=== PATIENT | female | born 2000 | race Caucasian/White ===

== ENCOUNTER 2022-08-21 17:56 | Inpatient (IN) | payer OTHER ==
[~2022-08-21] VITALS: Ht 157.5 cm; Wt 113.2 kg
[2022-08-21] MEDS ORDERED: AMPICILLIN FOR IV USE 2,000 MG in NS (IVPB) 50 ML IV SCH (18:14)
[2022-08-21] MEDS ORDERED: TERBUTALINE INJ 1 MG/ML (BRETHINE) AMP SC PRN (18:15)
[2022-08-21 20:04] LABS: BASOPHILS % (AUTO) 0 % (0-10); EOSINOPHILS # (AUTO) 0.1 10^3/uL (0.0-0.3); EOSINOPHILS % (AUTO) 1 % (0-10); HEMATOCRIT 39 % (35-52); HEMOGLOBIN 13.3 g/dL (11.5-16.0); LYMPHOCYTES # (AUTO) 2.5 10^3/uL (1.0-4.0); LYMPHOCYTES % (AUTO) 23 % (12-44); MEAN CORPUSCULAR HEMOGLOBIN 31 pg (25-34); MEAN CORPUSCULAR HGB CONC 34 g/dL (32-36); MEAN CORPUSCULAR VOLUME 93 fL (80-99); MEAN PLATELET VOLUME 11.3 fL (9.0-12.2); MONOCYTES # (AUTO) 0.7 10^3/uL (0.0-1.0); MONOCYTES % (AUTO) 6 % (0-12); NEUTROPHILS # (AUTO) 7.4 10^3/uL (1.8-7.8); NEUTROPHILS % (AUTO) 69 % (42-75); PLATELET COUNT 233 10^3/uL (130-400); WHITE BLOOD COUNT 10.8 10^3/uL (4.3-11.0)
[2022-08-21] MEDS: NS IV 1000 ML 1,000 ML IV SCH ×2 (20:07→23:21)
[2022-08-21 20:15] VITALS: BP 119/74
[2022-08-21 20:33] VITALS: BP 140/84
[2022-08-21] MEDS ORDERED: ACYCLOVIR 400 MG TABLET (ZOVIRAX) PO SCH (21:30)
[2022-08-21] MEDS ORDERED: ACYCLOVIR 400 MG TABLET (ZOVIRAX) ONE (21:41)
[2022-08-21] MEDS: ACYCLOVIR 400 MG TABLET (ZOVIRAX) PO SCH (21:48)
[2022-08-21] MEDS ORDERED: CATHETER FLUSH 10 ML SYR IV SCH (22:00)
[2022-08-21 23:30] VITALS: BP 124/67
[2022-08-22] VITALS (63 sets, daily range): BP systolic 34–171; BP diastolic 52–101
[2022-08-22] MEDS: AMPICILLIN FOR IV USE 1,000 MG in NS (IVPB) 50 ML IV SCH ×6 (01:08→22:19)
[2022-08-22] MEDS: NS IV 1000 ML 1,000 ML IV SCH ×2 (08:23→18:23)
--- NOTE | 2022-08-22 08:29 | History & Physical-OB ---
OB - Chief Complaint & HPI Date/Time Date of Admission: Date of Admission: Aug 21, 2022 at 17:56 Date seen by a Provider: Aug 22, 2022 Time Seen by a Provider: 08:00 Chief Complaint/History OB-Reason for Admission/Chief: Induction of Labor Hx : 1 Hx Para: 0 Expected Date of Delivery: Aug 23, 2022 Gestational Age in Weeks: 39 Gestational Age in Days: 4 Allergies and Home Medications Allergies Coded Allergies: cephalexin (Verified Allergy, Severe, Hives, 08/21/22) rizatriptan (Verified Adverse Reaction, Intermediate, Shortness of Breath, 08/21/22) Patient Home Medication List Home Medication List Reviewed: Yes OB - History Hx of Present Care: Yes Ultrasounds: Normal mid trimester US Obstetrical Complications: None Medical Complications: None Obstetrical History Hx : 1 Patient Past Medical History None Social History/Family History Alcohol Use: Denies Use Recreational Drug Use: No Smoking Cessation: Never smoker 2nd Hand Smoke Exposure: No Immunizations Influenza Vaccine Up-to-Date: No; Not Current Hepatitis A: Yes Hepatitis B: Yes Tetanus Booster (TDap): Less than 5yrs Rubella: immune RPR/VDRL: Negative GBS Status: Positive HBsAG: Negative OB - Admission Exam Physical Exam Vitals: Vital Signs 08/21/22 08/21/22 08/22/22 20:33 23:30 06:24 Temp 36.9 Pulse 72 Resp 18 B/P (MAP) 102/59 (73) Pulse Ox 97 O2 Delivery Room Air HEENT: NCAT Heart: Rhythm Normal Lungs: Clear Abdomen: Gravid Cervical Dilatation: 3cm Effacement: Other (80%) Station: 0 Membranes: Intact Heart Rate: 130's Accelerations: Accelerations Present Decelerations: No Decelerations Contractions on Admission: >10 Minutes Apart Intensity: Moderate Adams Scoring Tool (Modified) Dilation (cm): 1-2cm (1) Effacement (%): 51-79% (2) Descent/Station: -1,0 (2) Cervix Consistency: Medium(1) Cervix Position: Middle/Mid-Position (1) Subtract 1 point for: Nulliparity (-1) Adams Score: 6 Labs Laboratory Tests Test 08/21/22 19:55 Range/Units White Blood Count 10.8 4.3-11.0 10^3/uL Red Blood Count 4.23 3.80-5.11 10^6/uL Hemoglobin 13.3 11.5-16.0 g/dL Hematocrit 39 35-52 % Mean Corpuscular Volume 93 80-99 fL Mean Corpuscular Hemoglobin 31 25-34 pg Mean Corpuscular Hemoglobin Concent 34 32-36 g/dL Red Cell Distribution Width 13.9 10.0-14.5 % Platelet Count 233 130-400 10^3/uL Mean Platelet Volume 11.3 9.0-12.2 fL Immature Granulocyte % (Auto) 1 % Neutrophils (%) (Auto) 69 42-75 % Lymphocytes (%) (Auto) 23 12-44 % Monocytes (%) (Auto) 6 0-12 % Eosinophils (%) (Auto) 1 0-10 % Basophils (%) (Auto) 0 0-10 % Neutrophils # (Auto) 7.4 1.8-7.8 10^3/uL Lymphocytes # (Auto) 2.5 1.0-4.0 10^3/uL Monocytes # (Auto) 0.7 0.0-1.0 10^3/uL Eosinophils # (Auto) 0.1 0.0-0.3 10^3/uL Basophils # (Auto) 0.0 0.0-0.1 10^3/uL Immature Granulocyte # (Auto) 0.1 0.0-0.1 10^3/uL OB - Assessment/Plan/Diagnosis Assessment Assessment: group B positive strep, induction of labor Admission Dx Third Trimester 39 completed weeks gestation GBS + HSV +, no active lesions, on Ppx Admission Status: Inpatient Order (span 2 midnights) Reason for Inpatient Admission: Labor and delivery Plan Other Plan 21 yo G1 @ 39.5 wga here for elective IOL Plan - Completed cytotec protocol O/N - Epidural when desired - GBS + EMBER SLATER MD Aug 22, 2022 08:29
[2022-08-22] MEDS ORDERED: fentaNYL 2 mcg/ml BUPIVA 0.125 100 ML ONE (08:34)
[2022-08-22] MEDS ORDERED: fentaNYL INJ 100 MCG/2 ML AMP ONE ×2 (09:25→23:00)
[2022-08-22] MEDS: fentaNYL 2 mcg/ml BUPIVA 0.125 100 ML IV SCH ×2 (09:30→17:28)
[2022-08-22] MEDS ORDERED: LACTATED RINGERS 1,000 ML IV ONE (10:00)
[2022-08-22] MEDS ORDERED: NALOXONE 0.4 MG/ML 1 ML (NARCAN) VIAL IV PRN (10:00)
[2022-08-22] MEDS ORDERED: OXYTOCIN PRE-MIX DRIP 500 ML IV SCH (10:15)
[2022-08-22] MEDS ORDERED: ONDANSETRON 4 MG/2 ML (SDV) Z0FRAN ONE (12:36)
[2022-08-22] MEDS ORDERED: ONDANSETRON 4 MG/2 ML (SDV) Z0FRAN IVP PRN (12:45)
[2022-08-22] MEDS ORDERED: METOCLOPRAMIDE INJ 10 MG/2 ML (REGLAN) IVP PRN (13:00)
[2022-08-22] MEDS ORDERED: LIDOCAINE/EPI 2% 1:200,00 (XYLOCAINE) 10 ML VIAL ONE (19:27)
[2022-08-22] MEDS ORDERED: MINERAL OIL 30 ML UDC ONE (19:27)
[2022-08-22] MEDS: ACYCLOVIR 400 MG TABLET (ZOVIRAX) PO SCH (22:17)
[2022-08-22] MEDS ORDERED: FAMOTIDINE 20MG/2ML IV (PEPCID) ONE (22:42)
[2022-08-22] MEDS ORDERED: METOCLOPRAMIDE INJ 10 MG/2 ML (REGLAN) ONE (22:42)
[2022-08-22] MEDS ORDERED: CITRIC ACID/SOB CIT (BICITRA) 30 ML UDC ONE (22:42)
--- NOTE | 2022-08-22 22:43 | Labor Progress Note ---
Labor Progress Note Labor Progress Note Date Seen by Provider: Aug 22, 2022 Time Seen by Provider: 22:39 Subjective: Patient pushing for 2 hrs and 30 mins. She is exhausted and states that she wants a c/section Objective: Complete +3, OP position Assessment/Plan: Saira Randhawa is a (21 /Para 1 / 0,Gestational Age (wks)39.5 wga here for IOL Failure to progress maternal Exhaustion GBS + adequately treated Dr Diaz called and updated on patient, Primary c/s called urgent @ 1029 Vitals - Labs Vital Signs - I&O Vital Signs Date Time Temp Pulse Resp B/P (MAP) Pulse Ox O2 Delivery O2 Flow Rate FiO2 08/22/22 19:00 133 18 150/89 (109) Room Air 08/22/22 18:45 116 18 149/78 (101) Room Air 08/22/22 18:30 36.6 115 18 142/74 (96) Room Air 08/22/22 18:15 115 18 143/74 (97) Room Air 08/22/22 18:00 115 18 142/76 (98) Room Air 08/22/22 17:30 109 18 136/85 (102) Room Air 08/22/22 17:15 113 18 137/74 (95) Room Air 08/22/22 17:00 109 18 128/72 (90) Room Air 08/22/22 16:45 112 18 137/71 (93) Room Air 08/22/22 16:30 114 18 131/68 (89) Room Air 08/22/22 16:15 116 18 137/74 (95) Room Air 08/22/22 16:00 113 18 135/75 (95) Room Air 08/22/22 15:45 122 18 143/83 (103) Room Air 08/22/22 15:30 116 18 135/68 (90) Room Air 08/22/22 15:15 105 18 130/68 (88) Room Air 08/22/22 15:00 111 18 130/72 (91) Room Air 08/22/22 14:45 36.3 08/22/22 14:30 110 18 138/65 (89) Room Air 08/22/22 14:15 114 18 145/67 (93) Room Air 08/22/22 14:00 109 18 142/64 (90) Room Air 08/22/22 13:45 110 18 147/66 (93) Room Air 08/22/22 13:30 121 18 136/63 (87) Room Air 08/22/22 13:15 114 18 134/67 (89) 100 Room Air 08/22/22 13:00 36.3 111 18 121/58 (79) 100 Room Air 08/22/22 12:45 111 18 127/60 (82) 100 Room Air 08/22/22 12:30 102 18 122/59 (80) 99 Room Air 08/22/22 12:15 99 18 128/65 (86) 100 Room Air 08/22/22 12:00 96 18 138/73 (94) 99 Room Air 08/22/22 11:45 96 18 134/72 (92) 98 Room Air 08/22/22 11:30 90 18 130/74 (92) 99 Room Air 08/22/22 11:15 95 18 34/79 (64) 99 Room Air 08/22/22 11:00 92 18 130/73 (92) 99 Room Air 08/22/22 10:45 91 18 136/73 (94) 97 Room Air 08/22/22 10:24 36.2 86 18 139/73 (95) 100 Room Air 08/22/22 10:20 83 18 142/96 (111) 100 Room Air 08/22/22 10:01 99 18 143/80 (101) 99 Room Air 08/22/22 09:57 90 18 144/87 (106) 99 Room Air 08/22/22 09:54 90 18 140/82 (101) Room Air 08/22/22 09:51 88 18 142/85 (104) 99 Room Air 08/22/22 09:49 90 18 148/87 (107) 99 Room Air 08/22/22 09:46 89 18 149/83 (105) 99 Room Air 08/22/22 09:43 89 18 150/84 (106) 99 Room Air 08/22/22 09:40 91 18 157/87 (110) 98 Room Air 08/22/22 09:37 94 18 154/89 (110) 98 Room Air 08/22/22 09:34 90 18 162/101 (121) 98 Room Air 08/22/22 09:31 91 18 171/79 (109) 98 Room Air 08/22/22 09:28 96 18 169/94 (119) 98 Room Air 08/22/22 09:22 94 18 145/67 (93) 98 Room Air 08/22/22 09:19 106 18 161/77 (105) 98 Room Air 08/22/22 09:16 102 18 148/72 (97) 98 Room Air 08/22/22 09:05 36.4 104 18 145/79 (101) 100 Room Air 08/22/22 06:24 72 18 102/59 (73) Room Air 08/22/22 05:25 82 18 131/58 (82) Room Air 08/22/22 04:24 82 18 129/75 (93) Room Air 08/22/22 03:26 81 18 137/84 (101) Room Air 08/22/22 02:30 82 18 127/73 (91) Room Air 08/22/22 01:30 79 18 107/52 (70) Room Air 08/21/22 23:30 36.9 80 18 124/67 (86) Room Air I & O 08/22/22 07:00 Intake Total 1100 ml Balance 1100 ml EMBER SLATER MD Aug 22, 2022 22:43
[2022-08-22] MEDS ORDERED: CLINDAMYCIN 900 MG/50 ML IVPB 50 ML IV ONE ×2 (22:56→23:00)
[2022-08-22] MEDS ORDERED: LIDOCAINE PF 2% 5 ML (XYLOCAINE) VIAL ONE (23:00)
[2022-08-22] MEDS ORDERED: D5 LR IV SOLUTION 1,000 ML IV SCH (23:00)
[2022-08-22] MEDS ORDERED: IBUPROFEN 800 MG (MOTRIN) TAB PO SCH (23:00)
[2022-08-22] MEDS ORDERED: TETANUS,DIPTH,PERTUSS P/F (BOOSTRIX) 0.5 ML VIAL IM ONE (23:00)
[2022-08-22] MEDS ORDERED: BUPIVACAINE 0.5% 30 ML (SENSORCAINE) VIAL ONE (23:25)
[2022-08-22] MEDS ORDERED: KETOROLAC 30 MG/ML VIAL ONE (23:25)
[2022-08-22] MEDS ORDERED: OXYTOCIN PRE-MIX DRIP 500 ML IV ONE (23:25)
[2022-08-23] VITALS (12 sets, daily range): BP systolic 123–141; BP diastolic 75–86
[2022-08-23] MEDS ORDERED: ONDANSETRON 4 MG/2 ML (SDV) Z0FRAN IVP PRN (00:30)
[2022-08-23] MEDS ORDERED: LACTATED RINGERS 1,000 ML IV PRN ×3 (00:30→04:00)
[2022-08-23] MEDS ORDERED: HYDROmorphone 2 MG/ML VIAL (DILAUDID) IV ONE (00:30)
[2022-08-23] MEDS: OXYTOCIN PRE-MIX DRIP 500 ML IV SCH ×2 (01:19→01:37)
[2022-08-23] MEDS: oxyCODONE/APAP 10/325MG (PERCOCET 10) TABLET PO PRN ×4 (02:14→23:28)
[2022-08-23] MEDS ORDERED: MINERAL OIL 30 ML TOP ONE (03:00)
[2022-08-23] MEDS ORDERED: METOCLOPRAMIDE INJ 10 MG/2 ML (REGLAN) IV ONE (04:00)
[2022-08-23] MEDS ORDERED: CITRIC ACID/SOB CIT (BICITRA) 30 ML UDC PO ONE (04:00)
[2022-08-23] MEDS ORDERED: FAMOTIDINE 20MG/2ML IV (PEPCID) IV ONE (04:00)
[2022-08-23] MEDS: KETOROLAC 30 MG/ML VIAL IV SCH ×4 (06:12→20:31)
--- NOTE | 2022-08-23 07:36 | Progress Note ---
Standard Progress Note Progress Notes/Assess & Plan Date Seen by a Provider: Aug 23, 2022 Time Seen by a Provider: 07:32 Progress/Assessment & Plan This patient is without complaint. She is ambulating, voiding, tolerating oral intake and has good pain control. Her baby was shipped over to [facility] last evening. Patient reports that baby is improving and is doing well at their NICU. Patient denies headache, denies shortness of breath, denies nausea or vomiting, and denies chest pain Vital Signs Date Time Temp Pulse Resp B/P (MAP) Pulse Ox O2 Delivery O2 Flow Rate FiO2 08/23/22 07:09 Room Air 08/23/22 04:37 36.6 98 18 133/81 (98) 97 Room Air 08/23/22 01:42 36.7 102 22 134/85 (101) 98 Room Air 08/23/22 01:19 36.6 21 127/81 (96) 98 Room Air 08/23/22 01:19 Room Air 08/23/22 01:04 36.5 24 126/78 (94) 97 Room Air 08/23/22 01:04 Room Air 08/23/22 00:49 Room Air 08/23/22 00:49 36.7 22 123/79 (94) 98 Room Air 08/23/22 00:34 Room Air 08/23/22 00:34 37.0 12 138/86 (103) 98 Room Air 08/23/22 00:19 36.2 128/82 (97) 98 Room Air 08/23/22 00:19 Room Air 08/22/22 23:13 109 125/67 (86) Room Air 08/22/22 23:10 132 20 132/76 (94) 99 Room Air 08/22/22 22:20 36.3 08/22/22 20:13 151 168/74 (105) Non Rebreather 15.00 08/22/22 19:58 125 137/73 (94) Room Air 08/22/22 19:43 120 137/81 (99) Room Air 08/22/22 19:29 117 138/64 (88) Room Air 08/22/22 19:13 120 20 171/79 (109) Room Air 08/22/22 19:00 133 18 150/89 (109) Room Air 08/22/22 18:45 116 18 149/78 (101) Room Air 08/22/22 18:30 36.6 115 18 142/74 (96) Room Air 08/22/22 18:15 115 18 143/74 (97) Room Air 08/22/22 18:00 115 18 142/76 (98) Room Air 08/22/22 17:30 109 18 136/85 (102) Room Air 08/22/22 17:15 113 18 137/74 (95) Room Air 08/22/22 17:00 109 18 128/72 (90) Room Air 08/22/22 16:45 112 18 137/71 (93) Room Air 08/22/22 16:30 114 18 131/68 (89) Room Air 08/22/22 16:15 116 18 137/74 (95) Room Air 08/22/22 16:00 113 18 135/75 (95) Room Air 08/22/22 15:45 122 18 143/83 (103) Room Air 08/22/22 15:30 116 18 135/68 (90) Room Air 08/22/22 15:15 105 18 130/68 (88) Room Air 08/22/22 15:00 111 18 130/72 (91) Room Air 08/22/22 14:45 36.3 08/22/22 14:30 110 18 138/65 (89) Room Air 08/22/22 14:15 114 18 145/67 (93) Room Air 08/22/22 14:00 109 18 142/64 (90) Room Air 08/22/22 13:45 110 18 147/66 (93) Room Air 08/22/22 13:30 121 18 136/63 (87) Room Air 08/22/22 13:15 114 18 134/67 (89) 100 Room Air 08/22/22 13:00 36.3 111 18 121/58 (79) 100 Room Air 08/22/22 12:45 111 18 127/60 (82) 100 Room Air 08/22/22 12:30 102 18 122/59 (80) 99 Room Air 08/22/22 12:15 99 18 128/65 (86) 100 Room Air 08/22/22 12:00 96 18 138/73 (94) 99 Room Air 08/22/22 11:45 96 18 134/72 (92) 98 Room Air 08/22/22 11:30 90 18 130/74 (92) 99 Room Air 08/22/22 11:15 95 18 34/79 (64) 99 Room Air 08/22/22 11:00 92 18 130/73 (92) 99 Room Air 08/22/22 10:45 91 18 136/73 (94) 97 Room Air 08/22/22 10:24 36.2 86 18 139/73 (95) 100 Room Air 08/22/22 10:20 83 18 142/96 (111) 100 Room Air 08/22/22 10:01 99 18 143/80 (101) 99 Room Air 08/22/22 09:57 90 18 144/87 (106) 99 Room Air 08/22/22 09:54 90 18 140/82 (101) Room Air 08/22/22 09:51 88 18 142/85 (104) 99 Room Air 08/22/22 09:49 90 18 148/87 (107) 99 Room Air 08/22/22 09:46 89 18 149/83 (105) 99 Room Air 08/22/22 09:43 89 18 150/84 (106) 99 Room Air 08/22/22 09:40 91 18 157/87 (110) 98 Room Air 08/22/22 09:37 94 18 154/89 (110) 98 Room Air 08/22/22 09:34 90 18 162/101 (121) 98 Room Air 08/22/22 09:31 91 18 171/79 (109) 98 Room Air 08/22/22 09:28 96 18 169/94 (119) 98 Room Air 08/22/22 09:22 94 18 145/67 (93) 98 Room Air 08/22/22 09:19 106 18 161/77 (105) 98 Room Air 08/22/22 09:16 102 18 148/72 (97) 98 Room Air 08/22/22 09:05 36.4 104 18 145/79 (101) 100 Room Air I & O 08/23/22 07:00 Intake Total 4218 ml Output Total 325 ml Balance 3893 ml Vital signs are stable. Patient is afebrile. The abdomen is benign. Extremities show no clubbing or cyanosis. There is no Homans' sign. Pelvic exam is deferred Assessment and plan Postoperative day #1 status post primary delivery doing well. Plan is for routine convalescent care with likely discharge home tomorrow. PATTI MITCHELL MD Aug 23, 2022 07:36
[2022-08-23] MEDS ORDERED: OXYC1TAB12 PO (07:38)
[2022-08-23] MEDS ORDERED: IBUP-1780 PO (07:38)
[2022-08-23] MEDS ORDERED: DOCU100C37 PO (07:38)
--- NOTE | 2022-08-23 07:39 | Discharge Inst-Surgical ---
Discharge Inst-Surgical Depart Medication/Instructions New, Converted or Re-Newed RX: Other Consults/Follow Up Patient Instructions: As directed Orders & Referrals Follow Up Appt: RTC 1 week for incision check. With Dr. Thakur Call to make follow up appt. for patient in [address] Cary. Wound Care: Remove valeri, apply benzoin and steri strips. Activity Per routine post instructions. Please call in RX to patient pharmacy. Diet as tolerated Patient may shower or tub bathe as desired. Continue home meds Activity Activity as Tolerated: No Diet Discharge Diet: No Restrictions PATTI THAKUR MD Aug 23, 2022 07:39
[2022-08-23] MEDS: DOCUSATE SODIUM 100 MG (COLACE) CAP PO SCH ×2 (08:37→20:31)
[2022-08-23] MEDS ORDERED: DOCUSATE SODIUM 100 MG (COLACE) CAP PO SCH (09:00)
--- NOTE | 2022-08-23 13:15 | OPERATIVE REPORT ---
DATE OF SERVICE: 08/22/2022 PREOPERATIVE DIAGNOSES: Term in labor with failure to progress/CPD. PREOPERATIVE DIAGNOSES: Term in labor with failure to progress/CPD with persistent OP. OPERATIVE PROCEDURE: Primary low transverse delivery of a viable male with Apgars of 2, 6 and 8 at 1, 5 and 10 minutes, weight of 7 pounds 6 ounces, time of 2337 and a cord blood pH of 7.03. OPERATIVE DESCRIPTION: The patient had an epidural from labor. The epidural was dosed adequately. With the patient supine, she was prepped and draped in the usual fashion for abdominal surgery. Hernandez catheter was placed in the urinary bladder. It is noted that the urine was somewhat blood-tinged. A Pfannenstiel incision was made through the skin with scalpel, the patient's abdomen was entered in the usual manner. Bladder retractor placed into position and clean scalpel used to make a 4 cm hysterotomy incision transversely across the lower uterine segment. Gurmeet meconium was released on hysterotomy. That incision was extended bluntly and then with Dr. Cary elevating the presenting part from below with the vaginal hand, the was elevated out of the pelvis and delivered via the uterine incision in the usual manner. was bulb suctioned on delivery of the head and again on completion of delivery. Umbilical cord was doubly clamped and cut. The was then passed to the casing puller in attendance for delivery. Cord bloods were obtained. The placenta delivered spontaneously Noonan. It was normal with a 3-vessel cord. The uterus was exteriorized, the interior wiped clean with a wet laparotomy sponge. Uterine incision then closed with two running locked sutures of 2-0 Vicryl. Hemostasis was complete. The uterus was now returned to the abdominal cavity. All blood clot and debris was removed from the abdominal cavity. With sponge and needle counts correct and hemostasis assured, the anterior parietal peritoneum was closed with running suture of 2-0 Vicryl. Rectus muscles were reapproximated with that suture as well. The rectus fascia was closed with two sutures of 2-0 Vicryl. Subcutaneous tissue was reapproximated with 2-0 Vicryl and then the skin was stapled. Sponge and needle counts were correct on completion of procedure. The blood loss was around 800 mL. The patient tolerated the procedure well and was transferred to the recovery room in stable condition. The had been taken stable to the full term nursery under the care of Dr. Cary. Job ID: [id number] DocumentID: [id number] Dictated Date: 08/23/2022 07:51:32 Dual Rate Supervisor Date: 08/23/2022 13:14:34 Dictated By: PATTI MITCHELL MD
--- NOTE | 2022-08-23 13:49 | Anesthesia-Regional Post-Op ---
Regional Patient Condition Mental Status: Alert, Oriented x3 Circulation: Same as Pre-Op Headache: Absent Sensation: Full Recovery Motor Block: Absent Post Op Complications Complications None Follow Up Care/Instructions Patient Instructions None needed. Anesthesia/Patient Condition Patient is doing well, no complaints, stable vital signs, no apparent adverse anesthesia problems. No complications reported per nursing. JEAN CARLOS ANTONIO CRNA Aug 23, 2022 13:49
[2022-08-24 02:27] VITALS: BP 135/74
[2022-08-24] MEDS: IBUPROFEN 800 MG (MOTRIN) TAB PO SCH ×2 (02:30→08:56)
[2022-08-24] MEDS: oxyCODONE/APAP 10/325MG (PERCOCET 10) TABLET PO PRN (06:09)
--- NOTE | 2022-08-24 08:04 | Progress Note ---
Standard Progress Note Progress Notes/Assess & Plan Date Seen by a Provider: Aug 24, 2022 Time Seen by a Provider: 08:03 Progress/Assessment & Plan This patient is without complaint. She is ambulating, voiding, tolerating oral intake and has good pain control. Her baby was shipped over to [facility] last evening. Patient reports that baby is improving and is doing well at their NICU. Patient denies headache, denies shortness of breath, denies nausea or vomiting, and denies chest pain Vital Signs Date Time Temp Pulse Resp B/P (MAP) Pulse Ox O2 Delivery O2 Flow Rate FiO2 08/23/22 07:09 Room Air 08/23/22 04:37 36.6 98 18 133/81 (98) 97 Room Air 08/23/22 01:42 36.7 102 22 134/85 (101) 98 Room Air 08/23/22 01:19 36.6 21 127/81 (96) 98 Room Air 08/23/22 01:19 Room Air 08/23/22 01:04 36.5 24 126/78 (94) 97 Room Air 08/23/22 01:04 Room Air 08/23/22 00:49 Room Air 08/23/22 00:49 36.7 22 123/79 (94) 98 Room Air 08/23/22 00:34 Room Air 08/23/22 00:34 37.0 12 138/86 (103) 98 Room Air 08/23/22 00:19 36.2 128/82 (97) 98 Room Air 08/23/22 00:19 Room Air 08/22/22 23:13 109 125/67 (86) Room Air 08/22/22 23:10 132 20 132/76 (94) 99 Room Air 08/22/22 22:20 36.3 08/22/22 20:13 151 168/74 (105) Non Rebreather 15.00 08/22/22 19:58 125 137/73 (94) Room Air 08/22/22 19:43 120 137/81 (99) Room Air 08/22/22 19:29 117 138/64 (88) Room Air 08/22/22 19:13 120 20 171/79 (109) Room Air 08/22/22 19:00 133 18 150/89 (109) Room Air 08/22/22 18:45 116 18 149/78 (101) Room Air 08/22/22 18:30 36.6 115 18 142/74 (96) Room Air 08/22/22 18:15 115 18 143/74 (97) Room Air 08/22/22 18:00 115 18 142/76 (98) Room Air 08/22/22 17:30 109 18 136/85 (102) Room Air 08/22/22 17:15 113 18 137/74 (95) Room Air 08/22/22 17:00 109 18 128/72 (90) Room Air 08/22/22 16:45 112 18 137/71 (93) Room Air 08/22/22 16:30 114 18 131/68 (89) Room Air 08/22/22 16:15 116 18 137/74 (95) Room Air 08/22/22 16:00 113 18 135/75 (95) Room Air 08/22/22 15:45 122 18 143/83 (103) Room Air 08/22/22 15:30 116 18 135/68 (90) Room Air 08/22/22 15:15 105 18 130/68 (88) Room Air 08/22/22 15:00 111 18 130/72 (91) Room Air 08/22/22 14:45 36.3 08/22/22 14:30 110 18 138/65 (89) Room Air 08/22/22 14:15 114 18 145/67 (93) Room Air 08/22/22 14:00 109 18 142/64 (90) Room Air 08/22/22 13:45 110 18 147/66 (93) Room Air 08/22/22 13:30 121 18 136/63 (87) Room Air 08/22/22 13:15 114 18 134/67 (89) 100 Room Air 08/22/22 13:00 36.3 111 18 121/58 (79) 100 Room Air 08/22/22 12:45 111 18 127/60 (82) 100 Room Air 08/22/22 12:30 102 18 122/59 (80) 99 Room Air 08/22/22 12:15 99 18 128/65 (86) 100 Room Air 08/22/22 12:00 96 18 138/73 (94) 99 Room Air 08/22/22 11:45 96 18 134/72 (92) 98 Room Air 08/22/22 11:30 90 18 130/74 (92) 99 Room Air 08/22/22 11:15 95 18 34/79 (64) 99 Room Air 08/22/22 11:00 92 18 130/73 (92) 99 Room Air 08/22/22 10:45 91 18 136/73 (94) 97 Room Air 08/22/22 10:24 36.2 86 18 139/73 (95) 100 Room Air 08/22/22 10:20 83 18 142/96 (111) 100 Room Air 08/22/22 10:01 99 18 143/80 (101) 99 Room Air 08/22/22 09:57 90 18 144/87 (106) 99 Room Air 08/22/22 09:54 90 18 140/82 (101) Room Air 08/22/22 09:51 88 18 142/85 (104) 99 Room Air 08/22/22 09:49 90 18 148/87 (107) 99 Room Air 08/22/22 09:46 89 18 149/83 (105) 99 Room Air 08/22/22 09:43 89 18 150/84 (106) 99 Room Air 08/22/22 09:40 91 18 157/87 (110) 98 Room Air 08/22/22 09:37 94 18 154/89 (110) 98 Room Air 08/22/22 09:34 90 18 162/101 (121) 98 Room Air 08/22/22 09:31 91 18 171/79 (109) 98 Room Air 08/22/22 09:28 96 18 169/94 (119) 98 Room Air 08/22/22 09:22 94 18 145/67 (93) 98 Room Air 08/22/22 09:19 106 18 161/77 (105) 98 Room Air 08/22/22 09:16 102 18 148/72 (97) 98 Room Air 08/22/22 09:05 36.4 104 18 145/79 (101) 100 Room Air I & O 08/23/22 07:00 Intake Total 4218 ml Output Total 325 ml Balance 3893 ml Vital signs are stable. Patient is afebrile. The abdomen is benign. Extremities show no clubbing or cyanosis. There is no Homans' sign. Pelvic exam is deferred Assessment and plan Postoperative day #1 status post primary delivery doing well. Plan is for routine convalescent care with likely discharge home tomorrow. August 24, 2022 Patient is without complaint. She is ambulating, voiding, tolerating oral intake well and has good pain control. She reports that her baby is doing well overall [facility]. Vital Signs Date Time Temp Pulse Resp B/P (MAP) Pulse Ox O2 Delivery O2 Flow Rate FiO2 08/24/22 02:27 36.1 84 16 135/74 (94) 97 Room Air 08/23/22 20:29 36.8 107 20 141/84 (103) 99 Room Air 08/23/22 16:30 36.8 96 129/75 (93) Room Air 08/23/22 12:30 36.3 88 18 130/79 (96) 98 Room Air 08/23/22 08:45 36.4 88 18 135/78 (97) 97 Room Air 08/23/22 08:30 36.4 88 18 135/78 (97) 97 Room Air I & O 08/24/22 07:00 Intake Total 900 ml Output Total 2600 ml Balance -1700 ml Vital signs are stable. Patient is afebrile. The abdomen is benign. The surgical incision is clean dry and intact. Extremities show no clubbing or cyanosis. There is no Homans' sign. Assessment and plan Postoperative day #2 status post primary delivery doing well. Plan is for routine convalescent care with discharge home and follow-up in clinic Final Diagnosis 39 weeks primary delivery PATTI MITCHELL MD Aug 24, 2022 08:04
[2022-08-24 08:05] VITALS: BP 122/73
[2022-08-24] MEDS: DOCUSATE SODIUM 100 MG (COLACE) CAP PO SCH (08:56)
[2022-08-24] MEDS ORDERED: OXYC1TAB12 PO (13:29)
== END 2022-08-24 11:50 | disposition home or self-care (01) | DRG 787 ==
LOC: LDRP 17:56
PROVIDERS: ADMIT Family Medicine; ATTEND Family Medicine
PROC: 3E0DXGC Introduction of Other Therapeutic Substance into Mouth and Pharynx, External Approach (ICD-10-PCS; 2022-08-21)
PROC: 10D00Z1 Extraction of Products of Conception, Low, Open Approach (ICD-10-PCS; principal; 2022-08-22 23:17)
DX: O99.824 Streptococcus B carrier state complicating childbirth (principal); O98.32 Other infections with a predominantly sexual mode of transmission complicating childbirth; Z37.0 Single live birth; O64.0XX0 Obstructed labor due to incomplete rotation of fetal head, not applicable or unspecified; O77.0 Labor and delivery complicated by meconium in amniotic fluid; A60.09 Herpesviral infection of other urogenital tract; Z3A.39 39 weeks gestation of pregnancy; Z88.1 Allergy status to other antibiotic agents
CPT/HCPCS: 36415; 85025; 86780; 86850; 86900; 86901; 94664